=== PATIENT | male | born 1960 | race Caucasian/White ===

== ENCOUNTER 2025-02-08 05:07 | Day surgery (SDC) | payer BC ==
[2025-02-03 14:04] VITALS: BMI 29.5
[2025-02-08] MEDS ORDERED: ONDANSETRON 4 MG/2 ML VIAL ONE (07:10)
[2025-02-08] MEDS ORDERED: LIDOCAINE HCL/PF 2% SDV 5ML VIAL ONE (07:10)
[2025-02-08] MEDS ORDERED: PROPOFOL 20 ML ONE (07:10)
[2025-02-08] MEDS ORDERED: MIDAZOLAM HCL 2 MG/2 ML SINGLE DOSE VIAL ONE (07:10)
[2025-02-08] MEDS ORDERED: DEXAMETHASONE SOD PHOSPHATE 4 MG/1 ML VIAL ONE (07:10)
[2025-02-08] MEDS: ceFAZolin SODIUM 1 GM VIAL IVPB ONE ×2 (08:01)
[2025-02-08] MEDS ORDERED: oxyCODONE HCL 5 MG TABLET PO PRN (08:21)
[2025-02-08] MEDS ORDERED: ONDANSETRON 4 MG/2 ML VIAL IVPUSH PRN (08:21)
[2025-02-08] MEDS ORDERED: LACTATED RINGERS SOLUTION 1,000 ML IV SCH (08:30)
[2025-02-08 09:57] VITALS: RESP 18
[2025-02-08 10:37] VITALS: BP 141/79; PULSE 59; TEMP 98
== END 2025-02-08 10:20 | disposition home or self-care (01) ==
LOC: JASU-SURG 05:07
PROVIDERS: ATTEND Urology
PROC: 0VBQ8ZZ Excision of Bilateral Vas Deferens, Via Natural or Artificial Opening Endoscopic (ICD-10-PCS; principal; 2025-02-08 07:30)
DX: N53.13 Anejaculatory orgasm (principal)
CPT/HCPCS: 88304-TC; 94760